=== PATIENT | male | born 1965 | race Caucasian/White ===

== ENCOUNTER 2020-05-23 06:30 | Outpatient (REF) | payer OTHER, SELFPAY ==
[2020-05-23 07:27] LABS: MANUAL DIFF FLAG NO
[2020-05-23 07:34] LABS: Basophils Absolute Auto 0.1 X10*3/uL (0.0-0.2); Basophils Percent Auto 1.2 % (0-2); Eosinophils Absolute Auto 0.4 X10*3/uL (0.0-0.4); Eosinophils Percent Auto 5.9 % (0-4); Hematocrit 48.5 % (42-52); Hemoglobin 16.7 g/dl (14.0-18.0); Imm Gran Abs Auto 0.07 X10*3/uL (0.00-0.03); Imm Gran Pct Auto 1.1 % (0.0-0.4); Lymphocytes Absolute Auto 1.7 X10*3/uL (1.2-4.9); Lymphocytes Percent Auto 26.2 % (20-40); Mean Corpuscular HGB Conc 34.4 g/dl (31.0-36.0); Mean Corpuscular Hemoglobin 31.2 pg (27.0-33.0); Mean Corpuscular Volume 90.7 fL (80-98); Mean Platelet Volume 10.1 fL (9.4-12.4); Monocytes Absolute Auto 0.5 X10*3/uL (0.1-1.2); Monocytes Percent Auto 7.2 % (2-11); Neutrophils Absolute Auto 3.9 X10*3/uL (2.0-8.3); Neutrophils Percent Auto 58.4 % (45-73); Platelet Count 304 X10*3/uL (160-400); Red Blood Count 5.35 X10*6/uL (4.60-5.80); Red Cell Distribution Width 11.8 % (11.0-16.0); White Blood Count 6.7 X10*3/uL (4.8-10.8)
[2020-05-23 07:48] LABS: Alanine Aminotransferase 39 U/L (0-40); Albumin Level 4.6 g/dL (3.5-5.0); Alkaline Phosphatase 64 U/L (39-117); Anion Gap 15 (12-20); Aspartate Amino Transferase 24 U/L (5-37); Bilirubin Total 0.6 mg/dL (0.0-1.0); Blood Urea Nitrogen 15 mg/dL (9-16); Carbon Dioxide 23 mmol/L (22-29); Chloride 107 mmol/L (96-108); Cholesterol 259 mg/dL; Estimated Glomerular Filt Rate > 60; Glucose Fasting 108 mg/dL (60-99); HDL Cholesterol 50 mg/dL; LDL Cholesterol Calculated 173 mg/dl; Potassium 4.2 mmol/L (3.3-5.1); Sodium 141 mmol/L (135-145); Total Protein 7.1 g/dL (6.5-8.0); Triglycerides 184 mg/dL
[2020-05-23 07:56] LABS: Glucose Urine UA NEG (NEG); Leukocyte Esterase Urine NEG (NEG); Nitrite Urine NEG (NEG); PH 5.5 (5.0-8.0); Specific Gravity - Urine 1.025 (1.005-1.025); Urine Blood NEG (NEG); Urine Ketones NEG (NEG); Urine Protein NEG (NEG-TRACE)
[2020-05-23 08:00] LABS: Appearance Urine CLEAR; Color Urine YELLOW
[2020-05-23 08:08] LABS: Prostate Specific Antigen Scr 0.47 ng/mL (<0.05-4.0)
== END 2020-05-23 06:31 | disposition home or self-care (01) ==
LOC: HO.LAB 06:30
PROVIDERS: PCP Internal Medicine; Visit Provider Internal Medicine
DX: Z00.00 Encounter for general adult medical examination without abnormal findings (principal); R73.03 Prediabetes; E78.00 Pure hypercholesterolemia, unspecified; Z12.5 Encounter for screening for malignant neoplasm of prostate
CPT/HCPCS: 36415; 80053; 80061; 81003; 84153; 85025

== ENCOUNTER 2021-06-01 10:39 | Outpatient (REF) | payer OTHER, SELFPAY ==
[2021-06-01 10:44] LABS: MANUAL DIFF FLAG NO
[2021-06-01 11:17] LABS: Basophils Absolute Auto 0.1 X10*3/uL (0.0-0.2); Basophils Percent Auto 0.9 % (0-2); Eosinophils Absolute Auto 0.3 X10*3/uL (0.0-0.4); Eosinophils Percent Auto 4.9 % (0-4); Hematocrit 46.9 % (42.0-52.0); Hemoglobin 15.8 g/dl (14.0-18.0); Imm Gran Abs Auto 0.05 X10*3/uL (0.00-0.03); Imm Gran Pct Auto 0.7 % (0.0-0.4); Lymphocytes Percent Auto 30.3 % (20-40); Mean Corpuscular HGB Conc 33.7 g/dl (31.0-36.0); Mean Corpuscular Hemoglobin 31.3 pg (27.0-33.0); Mean Corpuscular Volume 92.9 fL (80.0-98.0); Mean Platelet Volume 10.2 fL (9.4-12.4); Monocytes Absolute Auto 0.6 X10*3/uL (0.1-1.2); Monocytes Percent Auto 8.5 % (2-11); Neutrophils Absolute Auto 3.7 x10*3/uL (2.0-8.3); Neutrophils Percent Auto 54.7 % (45-73); Platelet Count 301 X10*3/uL (160-400); Red Blood Count 5.05 X10*6/uL (4.60-5.80); Red Cell Distribution Width 11.7 % (11.0-16.0); White Blood Count 6.7 X10*3/uL (4.8-10.8)
[2021-06-01 11:20] LABS: Appearance Urine CLEAR; Color Urine YELLOW; Glucose Urine UA NEG (NEG); Leukocyte Esterase Urine NEG (NEG); Nitrite Urine NEG (NEG); PH 5.5 (5.0-8.0); Specific Gravity - Urine 1.025 (1.005-1.025); Urine Blood NEG (NEG); Urine Ketones NEG (NEG); Urine Protein NEG (NEG-TRACE)
[2021-06-01 11:32] LABS: Creatinine Urine 188.19 mg/dL; Microalbum/Creatinine Ratio Ur 8.5 ug/mg cr
[2021-06-01 11:36] LABS: Alanine Aminotransferase 31 U/L (0-40); Albumin Level 4.3 g/dL (3.5-5.0); Alkaline Phosphatase 53 U/L (39-117); Anion Gap 12 (12-20); Aspartate Amino Transferase 19 U/L (5-37); Bilirubin Total 0.4 mg/dL (0.0-1.0); Blood Urea Nitrogen 18 mg/dL (9-16); Calcium 9.4 mg/dL (8.4-10.2); Carbon Dioxide 26 mmol/L (22-29); Chloride 107 mmol/L (96-108); Cholesterol 238 mg/dL; Estimated Glomerular Filt Rate > 60; Glucose Fasting 105 mg/dL (60-99); HDL Cholesterol 55 mg/dL; LDL Cholesterol Calculated 163 mg/dl; Potassium 4.5 mmol/L (3.3-5.1); Sodium 140 mmol/L (135-145); Total Protein 6.7 g/dL (6.5-8.0); Triglycerides 100 mg/dL
[2021-06-01 11:38] LABS: Estimated Average Glucose 108 mg/dL; Hemoglobin A1c % 5.4 %
[2021-06-01 12:48] LABS: PSA,Total (Free>4and<10) 0.44 ng/mL (0.00-4.00)
== END 2021-06-01 10:40 | disposition home or self-care (01) ==
LOC: HO.LNP 10:39
PROVIDERS: Visit Provider Internal Medicine
DX: Z00.00 Encounter for general adult medical examination without abnormal findings (principal); R73.03 Prediabetes; E78.00 Pure hypercholesterolemia, unspecified
CPT/HCPCS: 80053; 80061; 81003; 82043; 83036; 84153; 85025

== ENCOUNTER 2022-01-24 15:14 | Outpatient (REF) | payer OTHER, SELFPAY | END 2022-01-24 15:15 | disposition home or self-care (01) | LOC: HO.LNP 15:14 | PROVIDERS: PCP Internal Medicine; Visit Provider Surgery | DX: L72.0 Epidermal cyst (principal) | CPT/HCPCS: 11422; 88304 ==

== ENCOUNTER 2022-06-06 11:11 | Outpatient (REF) | payer OTHER, SELFPAY ==
[2022-06-06 11:15] LABS: MANUAL DIFF FLAG NO
[2022-06-06 11:38] LABS: Basophils Absolute Auto 0.1 X10*3/uL (0.0-0.2); Basophils Percent Auto 1.2 % (0-2); Eosinophils Absolute Auto 0.4 X10*3/uL (0.0-0.4); Eosinophils Percent Auto 6.2 % (0-4); Hematocrit 47.9 % (42.0-52.0); Hemoglobin 16.3 g/dl (14.0-18.0); Imm Gran Abs Auto 0.06 X10*3/uL (0.00-0.03); Imm Gran Pct Auto 0.9 % (0.0-0.4); Lymphocytes Absolute Auto 2.2 X10*3/uL (1.2-4.9); Lymphocytes Percent Auto 32.3 % (20-40); Mean Corpuscular Hemoglobin 31.5 pg (27.0-33.0); Mean Corpuscular Volume 92.6 fL (80.0-98.0); Mean Platelet Volume 10.2 fL (9.4-12.4); Monocytes Absolute Auto 0.5 X10*3/uL (0.1-1.2); Monocytes Percent Auto 7.5 % (2-11); Neutrophils Absolute Auto 3.5 x10*3/uL (2.0-8.3); Neutrophils Percent Auto 51.9 % (45-73); Platelet Count 322 X10*3/uL (160-400); Red Blood Count 5.17 X10*6/uL (4.60-5.80); Red Cell Distribution Width 11.8 % (11.0-16.0); White Blood Count 6.8 X10*3/uL (4.8-10.8)
[2022-06-06 11:44] LABS: Estimated Average Glucose 105 mg/dL; Hemoglobin A1c % 5.3 %
[2022-06-06 11:50] LABS: Appearance Urine Clear; Color Urine Yellow; Glucose Urine UA Negative (Negative); Leukocyte Esterase Urine Negative (Negative); Nitrite Urine Negative (Negative); PH 5.5 (5.0-9.0); Urine Blood Negative (Negative); Urine Ketones Negative (Negative); Urine Protein Negative (Neg-Trace)
[2022-06-06 12:17] LABS: Alanine Aminotransferase 28 U/L (0-40); Albumin Level 4.3 g/dL (3.5-5.0); Alkaline Phosphatase 56 U/L (39-117); Anion Gap 15 (12-20); Aspartate Amino Transferase 18 U/L (5-37); Bilirubin Total 0.8 mg/dL (0.0-1.0); Blood Urea Nitrogen 13 mg/dL (9-16); Calcium 9.4 mg/dL (8.4-10.2); Carbon Dioxide 23 mmol/L (22-29); Chloride 108 mmol/L (96-108); Cholesterol 246 mg/dL; Estimated Glomerular Filt Rate > 60; Glucose Fasting 95 mg/dL (60-99); HDL Cholesterol 61 mg/dL; LDL Cholesterol Calculated 165 mg/dl; PSA,Total (Free>4and<10) 0.51 ng/mL (0.00-4.00); Potassium 4.7 mmol/L (3.3-5.1); Sodium 141 mmol/L (135-145); Total Protein 6.8 g/dL (6.5-8.0); Triglycerides 104 mg/dL
[2022-06-06 12:42] LABS: Creatinine Urine 181.66 mg/dL; Microalbum/Creatinine Ratio Ur 7.1 ug/mg cr
== END 2022-06-06 11:12 | disposition home or self-care (01) ==
LOC: HO.LNP 11:11
PROVIDERS: Visit Provider Internal Medicine
DX: Z00.00 Encounter for general adult medical examination without abnormal findings (principal); Z12.5 Encounter for screening for malignant neoplasm of prostate; R73.03 Prediabetes; E78.00 Pure hypercholesterolemia, unspecified
CPT/HCPCS: 80053; 80061; 81003; 82043; 83036; 84153; 85025

== ENCOUNTER 2023-07-14 10:53 | Outpatient (REF) | payer OTHER, SELFPAY ==
[2023-07-14 10:57] LABS: MANUAL DIFF FLAG NO
[2023-07-14 11:33] LABS: Basophils Absolute Auto 0.1 X10*3/uL (0.0-0.2); Basophils Percent Auto 0.9 % (0-2); Eosinophils Absolute Auto 0.3 X10*3/uL (0.0-0.4); Eosinophils Percent Auto 3.8 % (0-4); Hematocrit 46.4 % (42.0-52.0); Hemoglobin 15.7 g/dl (14.0-18.0); Imm Gran Abs Auto 0.07 X10*3/uL (0.00-0.03); Lymphocytes Absolute Auto 2.1 X10*3/uL (1.2-4.9); Lymphocytes Percent Auto 30.2 % (20-40); Mean Corpuscular HGB Conc 33.8 g/dl (31.0-36.0); Mean Corpuscular Hemoglobin 31.4 pg (27.0-33.0); Mean Corpuscular Volume 92.8 fL (80.0-98.0); Mean Platelet Volume 10.4 fL (9.4-12.4); Monocytes Absolute Auto 0.5 X10*3/uL (0.1-1.2); Monocytes Percent Auto 7.7 % (2-11); Neutrophils Absolute Auto 3.9 x10*3/uL (2.0-8.3); Neutrophils Percent Auto 56.4 % (45-73); Platelet Count 300 X10*3/uL (160-400); Red Cell Distribution Width 12.1 % (11.0-16.0); White Blood Count 6.9 X10*3/uL (4.8-10.8)
[2023-07-14 11:37] LABS: Estimated Average Glucose 103 mg/dL; Hemoglobin A1c % 5.2 % (<6.0)
[2023-07-14 12:29] LABS: Appearance Urine Clear; Color Urine Yellow; Glucose Urine UA Negative (Negative); Leukocyte Esterase Urine Negative (Negative); Nitrite Urine Negative (Negative); Urine Blood Negative (Negative); Urine Ketones Negative (Negative); Urine Protein Negative (Neg-Trace)
[2023-07-14 12:36] LABS: Bacteria Urine None Seen (None Seen); Hyaline Casts Urine 0-2 /LPF (0-2); RBC Urine 0-2 /HPF (0-2); Squamous Epithelial Cell Urine 0-2 /HPF (0-2); WBC Urine 0-5 /HPF (0-5)
[2023-07-14 13:15] LABS: PSA,Total (Free>4and<10) 0.53 ng/mL (0.00-4.00)
[2023-07-14 13:33] LABS: Creatinine Urine 108.35 mg/dL; Microalbum/Creatinine Ratio Ur 6.4 ug/mg cr (<30)
[2023-07-14 13:37] LABS: Alanine Aminotransferase 31 U/L (0-40); Albumin Level 4.2 g/dL (3.5-5.0); Alkaline Phosphatase 55 U/L (39-117); Anion Gap 11 (12-20); Aspartate Amino Transferase 20 U/L (5-37); Bilirubin Total 0.4 mg/dL (0.0-1.0); Blood Urea Nitrogen 19 mg/dL (9-16); Calcium 9.2 mg/dL (8.4-10.2); Carbon Dioxide 24 mmol/L (22-29); Chloride 109 mmol/L (96-108); Cholesterol 207 mg/dL (<200); Estimated Glomerular Filt Rate > 60; Glucose Fasting 97 mg/dL (60-99); HDL Cholesterol 61 mg/dL (>40); LDL Cholesterol Calculated 130 mg/dL (<100); Potassium 4.3 mmol/L (3.3-5.1); Sodium 140 mmol/L (135-145); Total Protein 6.7 g/dL (6.5-8.0); Triglycerides 82 mg/dL (<150)
== END 2023-07-14 10:54 | disposition home or self-care (01) ==
LOC: HO.LNP 10:53
PROVIDERS: Visit Provider Internal Medicine
DX: Z00.00 Encounter for general adult medical examination without abnormal findings (principal); Z12.5 Encounter for screening for malignant neoplasm of prostate; R73.03 Prediabetes; E78.00 Pure hypercholesterolemia, unspecified
CPT/HCPCS: 80053; 80061; 81001; 82043; 82570; 83036; 84153; 85025

== ENCOUNTER 2024-07-19 11:59 | Outpatient (REF) | payer BC, SELFPAY ==
[2024-07-19 12:04] LABS: MANUAL DIFF FLAG NO
[2024-07-19 12:13] LABS: Appearance Urine Hazy; Color Urine Yellow; Glucose Urine UA Negative (Negative); Leukocyte Esterase Urine Negative (Negative); Nitrite Urine Negative (Negative); Specific Gravity - Urine 1.025 (1.005-1.025); Urine Blood Negative (Negative); Urine Ketones Negative (Negative); Urine Protein Negative (Neg-Trace)
[2024-07-19 12:18] LABS: Bacteria Urine None Seen (None Seen); RBC Urine 0-2 /HPF (0-2); Squamous Epithelial Cell Urine 0-2 /HPF (0-2); WBC Urine 0-5 /HPF (0-5)
[2024-07-19 12:28] LABS: Basophils Absolute Auto 0.1 X10*3/uL (0.0-0.2); Eosinophils Absolute Auto 0.3 X10*3/uL (0.0-0.4); Eosinophils Percent Auto 4.2 % (0-4); Hematocrit 48.6 % (42.0-52.0); Hemoglobin 16.5 g/dl (14.0-18.0); Imm Gran Abs Auto 0.05 X10*3/uL (0.00-0.03); Imm Gran Pct Auto 0.7 % (0.0-0.4); Lymphocytes Absolute Auto 1.9 X10*3/uL (1.2-4.9); Lymphocytes Percent Auto 27.3 % (20-40); Mean Corpuscular Hemoglobin 31.2 pg (27.0-33.0); Mean Corpuscular Volume 91.9 fL (80.0-98.0); Mean Platelet Volume 10.1 fL (9.4-12.4); Monocytes Absolute Auto 0.7 X10*3/uL (0.1-1.2); Monocytes Percent Auto 10.3 % (2-11); Neutrophils Percent Auto 56.5 % (45-73); Platelet Count 305 X10*3/uL (160-400); Red Blood Count 5.29 X10*6/uL (4.60-5.80); Red Cell Distribution Width 12.3 % (11.0-16.0); White Blood Count 7.1 X10*3/uL (4.8-10.8)
[2024-07-19 12:38] LABS: Creatinine Urine 232.22 mg/dL; Microalbum/Creatinine Ratio Ur 8.1 ug/mg cr (<30)
[2024-07-19 12:55] LABS: Estimated Average Glucose 108 mg/dL; Hemoglobin A1C 152.1052 umol/L; Hemoglobin A1c % 5.4 % (<6.0)
[2024-07-19 13:05] LABS: Alanine Aminotransferase 39 U/L (0-40); Albumin Level 4.4 g/dL (3.5-5.0); Alkaline Phosphatase 67 U/L (39-117); Anion Gap 11 (12-20); Aspartate Amino Transferase 26 U/L (5-37); Bilirubin Total 0.7 mg/dL (0.0-1.0); Blood Urea Nitrogen 13 mg/dL (9-16); Calcium 9.2 mg/dL (8.4-10.2); Carbon Dioxide 25 mmol/L (22-29); Chloride 108 mmol/L (96-108); Cholesterol 224 mg/dL (<200); Estimated Glomerular Filt Rate > 60; Glucose Fasting 118 mg/dL (60-99); HDL Cholesterol 53 mg/dL (>40); LDL Cholesterol Calculated 150 mg/dL (<100); Potassium 4.1 mmol/L (3.3-5.1); Sodium 140 mmol/L (135-145); Triglycerides 109 mg/dL (<150)
[2024-07-19 13:14] LABS: PSA,Total (Free>4and<10) 1.87 ng/mL (0.00-4.00)
--- OUTSIDE RECORDS SUMMARY | 2024-07-19 13:44 | XMS_ITS ---
Author Organization Phil Neff MD Address [address] [place] [id number] Care Team Providers Care Supervisor Name Role Phone Phil Neff Primary Care Provider [phone] Allergies No Known Allergies Results Component Value Reference Range Notes Occult Blood, Stool, Guaiac Reviewed date:07/21/2023 03:56:19 PM Interpretation:Negative Performing Lab: Notes/Report: Negative Occult Blood, Stool, Guaiac Neg REASON FOR VISIT ANNUAL EXAM, No Covid symptoms Social History Tobacco Use: Social History Observation Description Date Details (start date - stop date) Never Smoker NA - NA Tobacco Use/Smoking Question Answer Notes Patient is a nonsmoker Additional Findings: Tobacco Non-User Cu rrent non-smoker, currently using no form of tobacco Alcohol Screen Question Answer Notes Did you have a drink contain ing alcohol in the past year? Yes How often did you have a dri nk containing alcohol in the past year? 2 to 4 times a month (2 points) How many drinks did you have on a typical day when you were drinking in the past year? 1 or 2 drinks (0 point) How often did you have 6 or more drinks on one occasion in the past year? Never (0 point) Points 2 Interpretation Negative Vital Signs Blood pressure systolic 112 mm Hg 07/21/19 24 Blood pressure diastolic 80 mm Hg 024 Height 69 in 07/21/2023 Weight 170 lbs 07/21/2023 BMI 25.10 kg/m2 07/21/2023 Encounters Encounter Location Date Provider Diagnosis Phil Neff MD [address] [place] [address] [place] [id number] 07/21/2023 Phil Neff Prediabetes R73.03 ; Annual physical exam Z00.00 ; Hypercholesterolemia E78.00 ; Common wart B07.8 ; Colon cancer screening Z12.11 and Depression screening Z13.31 Assessments Encounter Date Diagnosis (ICD Code) Assessment Notes Treatment Notes Treatment Clinical Notes Section Notes 07/21/2023 Prediabetes (ICD-10 - R73.03) good ai1c, no need for medication at ths time 07/21/2023 Annual physical exam (ICD-10 - Z00.00) labs reviewed and discussed with patient 07/21/2023 Hypercholesterolemia (ICD-10 - E78.00) doing well, no need for medication at this time, will contiue to monitor 07/21/2023 Common wart (ICD-10 - B07.8) is going to try freezing it 07/21/2023 Colon cancer screeni ng (ICD-10 - Z12.11) guaiac negatve 07/21/2023 Depression screening (ICD-10 - Z13.31) negative screen Plan Of Treatment Treatment Notes Assessment Notes Prediabetes good ai1c, no need f or medication at ths time Annual physical exam labs reviewed and d iscussed with patient Hypercholesterolemia doing well, no need for medication at this time, will contiue to monitor Common wart is going to try free zing it Colon cancer screening guaiac negatve Depression screening negative screen Next Appt Details Follow Up: 1 Year, Reason: Provider Name:Phil logan, 07/26/2024 03:30:00 PM, [address] [facility], [address], [place], [place], [phone], Progress Notes * Kelechi MICHELDOB: [birth year] (58 yo M)Acc No.[id number]:07/21/2023 Progress Notes Patient:?Kelechi Michel Provider:?Phil Neff MD :1965???Age:58 Y???Sex:Male Cisco e:07/21/2023 Address:[address] [place] [address], [id number] Subjective: * Chief Complaints: * ???ANNUAL EXAMNo Covid sympt oms * HPI: ???Depression Screening:?PHQ-9?Little interest or pleasure in doing things?Not at all,?Feeling down, depressed, or hopeless?Not at all,?Trouble falling or staying asleep, or sleeping too much?Not at all,?Feeling tired or having little energy?Not at all,?Poor appetite or overeating?Not at all,?Feeling bad about yourself or that you are a failure, or have let yourself or your family down?Not at all,?Trouble concentrating on things, such as reading the newspaper or watching television?Not at all,?Moving or speaking so slowly that other people could have noticed; or the opposite, being so fidgety or restless that you have been moving around a lot more than usual?Not at all,?Thoughts that you would be better off or of hurting yourself in some way?Not at all,?Total Score?0.?Interpretation and Intervention?Depression Screening Findings?Negative,?Follow-Up for Depression?: review of PHQ-9 found negative result, no follow-up needed.? patient is a 58 yo male here for annual visit with review of recent labs and follow up of chronic issues. ???Communication Needs:?Communication Needs?Does the patient have a hearing impairment?No,?Does the patient have a vision impairment??Yes,?If yes, what is the vision impairment??Glasses,?Does the patient have a cognition impairment??No.?SDOH Questions:?SDOH Questions?In the past year have you been worried about losing housing??No,?In the past year have you or any family members you live with been unable to get any of the following when it was really needed? Check all that apply:?None.? * ROS:?General/Constitutional:?Patient denies?fatigue , headache.?Change in appetite?denies.?Chills?denies.?Fever?denies.?Ophthalmologic:?Blurred vision?denies.?Discharge?denies.?Pain?denies.?ENT:?Patient denies?decreased sense of smell , any loss of taste , sore throat.?Decreased hearing?denies.?Sore throat?denies.?Swollen glands?denies.?Endocrine:?Cold intolerance?denies.?Excessive thirst?denies.?Heat intolerance?denies.?Weight loss?denies.?Respiratory:?Cough?denies.?Shortness of breath at rest?denies.?Shortness of breath with exertion?denies.?Wheezing?denies.?Cardiovascular:?Chest pain at rest?denies.?Chest pain with exertion?denies.?Irregular heartbeat?denies.?Shortness of breath?denies.?Gastrointestinal:?Abdominal pain?denies.?Change in bowel habits?denies.?Diarrhea?denies.?Nausea?denies.?Rectal bleeding?denies.?Vomiting?denies .?Genitourinary:?Blood in urine?denies.?Difficulty urinating?denies.?Frequent urination?denies.?Musculoskeletal:?Patient denies?muscle aches.?Painful joints?denies.?Weakness?denies.?Peripheral Vascular:?Patient denies?red and blue toes.?Skin:?Dry skin?denies.?Itching?denies.?Denies?Mole(s),? changes in moles, new moles or any lesions of concern.?Denies?Photosensitivity.?Rash?denies.?Neurologic:?Dizziness?denies.?Fainting?denies.?Headache?denies.? * Medical History:? * Surgical History:? * Hospitalization/Major Diagno stic Procedure:? * Family History:?Father: ruben e 90 yrs, diagnosed with Cancer.?Mother: alive 90 yrs, diagnosed with Cancer.?1 brother(s) , 2 sister(s) . 1 son(s) , 2 daughter(s) . .? No pertinent family medical history, Denies mental health/substance abuse family history, Denies mental health/substance abuse family history, Denies mental health/substance abuse family history, Denies mental health/substance abuse family history. * Social History:?Tobacco Use:?Tobacco Use/Smoking?Patient is a?nonsmoker,?Additional Findings: Tobacco Non-User?Current non-smoker, currently using no form of tobacco.?Drugs/Alcohol:?Alcohol Screen?Did you have a drink containing alcohol in the past year??Yes,?How often did you have a drink containing alcohol in the past year??2 to 4 times a month (2 points),?How many drinks did you have on a typical day when you were drinking in the past year??1 or 2 drinks (0 point),?How often did you have 6 or more drinks on one occasion in the past year??Never (0 point),?Points?2,?Interpretation?Negative.?Miscellaneous:?Caffeine: yes, frequency:,1-2 cups per day. Children: yes. Exercise: yes, walks everyday 45 minutes. Home smoke detector use: yes. Marital status: . 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 Pets: dog x1. no Travel outside of the [place]. * Medications:? * Allergies:?N.K.D.A.yes[Aller gies Verified] Objective: * Vitals:?Ht: 69, Wt:170, BMI: 25.10, BP:112/80. * ???Past Orders: ???Lab:Hemoglobin A1c (Order Date - 07/14/2023) (Collection Date - 07/14/2023) ? Value Reference Range ?Hemoglobin A1c % 5.2 <6. 0 - % ?Estimated Average Glucose 103 - mg/dL ???Lab:Complete Blood Count Auto Diff (Order Date - 07/14/2023) (Collection Date - 07/14/2023) ? Value Reference Range ?White Blood Count 6.9 4. 8-10.8 - X10*3/uL ?Red Blood Count 5.00 4.60 -5.80 - X10*6/uL ?Hemoglobin 15.7 14.0-18.0 - g/dl ?Hematocrit 46.4 42.0-52.0 - % ?Mean Corpuscular Volume 92.8 80.0-98.0 - fL ?Mean Corpuscular Hemoglobin 31.4 27.0-33.0 - pg ?Mean Corpuscular HGB Conc 33.8 31.0-36.0 - g/dl ?Red Cell Distribution Width 12.1 11.0-16.0 - % ?Platelet Count 300 160-4 00 - X10*3/uL ?Mean Platelet Volume 10.4 9.4-12.4 - fL ?Neutrophils Percent Auto 56.4 45-73 - % ?Imm Gran Pct Auto 1.0 H 0. 0-0.4 - % ?Lymphocytes Percent Auto 30.2 20-40 - % ?Monocytes Percent Auto 7.7 2-11 - % ?Eosinophils Percent Auto 3.8 0-4 - % ?Basophils Percent Auto 0.9 0-2 - % ?NRBC Pct Auto 0.0 0.0-0. 2 - /100WBC ?Neutrophils Absolute Auto 3.9 2.0-8.3 - x10*3/uL ?Imm Gran Abs Auto 0.07 H 0. 00-0.03 - X10*3/uL ?Lymphocytes Absolute Auto 2.1 1.2-4.9 - X10*3/uL ?Monocytes Absolute Auto 0.5 0.1-1.2 - X10*3/uL ?Eosinophils Absolute Auto 0.3 0.0-0.4 - X10*3/uL ?Basophils Absolute Auto 0.1 0.0-0.2 - X10*3/uL ?NRBC Abs Auto 0.000 0.0-0. 012 - X10*3/uL ???Lab:UA ClnCatch+Micro w/r flx Cult (Order Date - 07/14/2023) (Collection Date - 07/14/2023) ? Value Reference Range ?Color Urine Yellow - ?Appearance Urine Clear - ?PH 5.0 5.0-9.0 - ?Glucose Urine UA Negative Neg ative - mg/dL ?Urine Blood Negative Negative - ?Specific [place] - Urine 1.020 1.005-1.025 - ?Urine Protein Negative Neg-Tr rosy - mg/dL ?Urine Ketones Negative Negati ve - mg/dL ?Nitrite Urine Negative Negati ve - ?Leukocyte Esterase Urine Negative Negative - ?RBC Urine 0-2 0-2 - /HPF ?WBC Urine 0-5 0-5 - /HPF ?Squamous Epithelial Cell Urine 0-2 0-2 - /HPF ?Bacteria Urine None Seen None Seen - ?Hyaline Casts Urine 0-2 0-2 - /LPF ???Lab:Comprehensive Jenkins. P nadeem Fast (Order Date - 07/14/2023) (Collection Date - 07/14/2023) ? Value Reference Range ?Sodium 140 135-145 - mmo l/L ?Bilirubin Total 0.4 0.0- 1.0 - mg/dL ?Aspartate Amino Transferase 20 5-37 - U/L ?Alanine Aminotransferase 31 0-40 - U/L ?Total Protein 6.7 6.5-8. 0 - g/dL ?Albumin Level 4.2 3.5-5. 0 - g/dL ?Alkaline Phosphatase 55 39-117 - U/L ?Potassium 4.3 3.3-5.1 - mmol/L ?Chloride 109 H 96-108 - mm ol/L ?Carbon Dioxide 24 22-29 - mmol/L ?Anion Gap 11 L 12-20 - ?Blood Urea Nitrogen 19 H 9-16 - mg/dL ?Creatinine 0.86 0.5-1.4 - mg/dL ?Estimated Glomerular Filt Rate > 60 - ?Glucose Fasting 97 60-9 9 - mg/dL ?Calcium 9.2 8.4-10.2 - m g/dL ???Lab:Lipid Panel (Order Da te 07/14/2023) (Collection Date - 07/14/2023) ? Value Reference Range ?Triglycerides 82 <150 - mg/dL ?Cholesterol 207 H <200 - m g/dL ?LDL Cholesterol Calculated 130 H <100 - mg/dL ?HDL Cholesterol 61 >40 - mg/dL ???Lab:PSA,Total (Free>4and< 10) (Order Date - 07/14/2023) (Collection Date - 07/14/2023) ? Value Reference Range ?PSA,Total (Free>4and<10) 0.53 0.00-4.00 - ng/mL ???Lab:Microalbumin, Random (Order Date 07/14/2023) (Collection Date 07/14/2023) ? Value Reference Range ?Creatinine Urine 108.35 - m g/dL ?Microalbumin Urine 7.0 - mg/L ?Microalbum Creatinine Ratio Ur 6.4 <30 - ug/mg cr * Examination: ???General Examination: ?GENERAL APPEARANCE:?well developed, well nourished, in no acute distress.?HEAD:?normocephalic, atraumatic.?EYES:?pupils equal, round, reactive to light and accommodation, sclera non-icteric.?EARS:?normal.?ORAL CAVITY:?mucosa moist.?THROAT:?clear.?NECK/THYROID:?neck supple, full range of motion, no cervical lymphadenopathy, no bruits.?SKIN:?warm and dry, no suspicious lesions, abnormal rt ear lobe with? a wart about 3 mm.?HEART:?regular rate and rhythm, S1, S2 normal, no murmurs.?LUNGS:?clear to auscultation bilaterally.?ABDOMEN:?soft, nontender, nondistended, bowel sounds present, normal, no organomegaly , no masses palpable.?RECTAL EXAM:?normal tone, no external hemorrhoids, no masses palpable, prostate normal, stool guaiac negative.?MALE GENITOURINARY:?circumcised, no penile lesions or discharge.?EXTREMITIES:?no clubbing, cyanosis, or edema.?NEUROLOGIC:?nonfocal, motor strength normal upper and lower extremities, sensory exam intact.? Assessment: * Assessment: 1.?Annual physical exam - Z0 0.00 (Primary)?2.?Prediabetes - R73.03?3.?Hypercholesterolemia - E78.00?4.?Common wart - B07.8?5.?Colon cancer screening - Z12.11?6.?Depression screening - Z13.31? Plan: * Treatment: 2.?Prediabetes? Notes: good ai1c, no need for medication at ths time.?? 3.?Hypercholesterolemia? Notes: doing well, no need for medication at this time, will contiue to monitor.?? 4.?Common wart? Notes: is going to try freezing it.?? 5.?Colon cancer screening?LAB: Occult Blood, Stool, Guaiac?Negative ? Value Reference Range ?Occult Blood, Stool, Guaiac Neg Notes: guaiac negatve.??6.?Depression screening? Notes: negative screen.?? * Procedure Codes:?63281 TEST FOR BLOOD, FECES * Follow Up:?1 Year * * Sign off status: Completed true * Provider:?Phil Neff MD Date:?0 07/21/2023 Generated for Daniei david/Adan/eTransmitting on:?07/19/2024 01:44 PM EDT History and Physical Notes * HPI (History of Present Illness) Category Sub-Category Detail Notes Category Not es Depression Screening PHQ-9 Little inte rest or pleasure in doing things: Not at all patient is a 58 yo male here for annual visit with review of recent labs and follow up of chronic issues. Feeling down, depressed, or hopeless: No t at all Trouble falling or staying asleep, or sl eeping too much: Not at all Feeling tired or having little energy: N ot at all Poor appetite or overeating: Not at all Feeling bad about yourself o r that you are a failure, or have let yourself or your family down: Not at all Trouble concentrating on thi ngs, such as reading the newspaper or watching television: Not at all Moving or speaking so slowly that other people could have noticed; or the opposite, being so fidgety or restless that you have been moving around a lot more than usual: Not at all Thoughts that you would be b grace off or of hurting yourself in some way: Not at all Total Score: 0 Interpretation and Intervention Depression Dianna chambers Findings: Negative Follow-Up for Depression: : review of PH Q-9 found negative result, no follow-up needed SDOH Questions SDOH Questions In the past year have you been worried about losing housing?: No In the past year have you or any family members you live with been unable to get any of the following when it was really needed? Check all that apply:: None Communication Needs Communication Needs Does the patient have a hearing impairment: No Does the patient have a vision impairmen t?: Yes ?If yes, what is the vision impairment?: Glasses Does the patient have a cognition impair ment?: No Examination Category Sub-Category Detail Notes Category Not es General Examination GENERAL APPEARANCE: well dev eloped, well nourished, in no acute distress HEAD: normocephalic, atrau matic EYES: pupils equal, round, reactive to light and accommodation, sclera non- icteric EARS: normal THROAT: clear NECK/THYROID: neck supple, full ra nge of motion, no cervical lymphadenopathy, no bruits HEART: regular rate and rhy thm, S1, S2 normal, no murmurs LUNGS: clear to auscultatio n bilaterally ABDOMEN: soft, nontender, non distended, bowel sounds present, normal, no organomegaly , no masses palpable NEUROLOGIC: nonfocal, motor stre ngth normal upper and lower extremities, sensory exam intact SKIN: warm and dry, no tyrone picious lesions, abnormal rt ear lobe with a wart about 3 mm EXTREMITIES: no clubbing, cyanosi s, or edema MALE GENITOURINARY: circumcised, no peni le lesions or discharge RECTAL EXAM: normal tone, no exte rnal hemorrhoids, no masses palpable, prostate normal, stool guaiac negative ORAL CAVITY: mucosa moist
--- OUTSIDE RECORDS SUMMARY | 2024-07-19 13:44 | XMS_ITS ---
Author Organization Phil Neff MD Address [address] [place] [id number] Care Team Providers Care Stain Dipper Name Role Phone Phil Neff Primary Care Provider Allergies No Known Allergies Reason For Referral Reason CALLUS OF FOOT Diagnosis 1 Callus of foot (L84) Referral Organization Phil Neff MD Referring Provider First Name Phil Referring Provider Last Name Aishwarya Referring Provider Speciality Internal M edicine Referred Provider Karin Hoffmann Referred Provider Specialty Podiatry General Notes Asha Perry 10/02/2023 01:34:38 PM EDT > PHONE CALL TO [facility] INDICATES THEY HAVE RECD THE REFERRAL AND PATIENT CAN CALL FOR HIS APPT. I LEFT MIHIR A MESSAGE WITH THE INFO [phone], Asha Perry 01/02/2024 09:21:57 AM EDT > REQUEST FOR OFFICE NOTE SENT FOR APPT 01/01/24, Asha Perry 01/08/2024 08:15:44 AM EDT > PATIENT DID NOT KEEP APPT Referral Priority Routine Referral Appointment Date 01/01/2024 REASON FOR VISIT something in left foot very painful Vital Signs Blood pressure systolic 92 mm Hg 09/29/19 24 Blood pressure diastolic 60 mm Hg 024 Height 69 in 09/29/2023 Weight 170 lbs 09/29/2023 BMI 25.10 kg/m2 09/29/2023 Encounters Encounter Location Date Provider Diagnosis Phil Neff MD [address] [place] [address] [address] [place], [place] [phone] 09/29/2023 Phil Neff Callus of foot L84 Assessments Encounter Date Diagnosis (ICD Code) Assessment Notes Treatment Notes Treatment Clinical Notes Section Notes 09/29/2023 Callus of foot (ICD-10 - L84) referral to dr moreau/ THE REFERRAL AND OFFICE NOTE WILL BE FAXED TO DR DARIN MOREAU @[facility]. THEY WILL REACH OUT TO PATIENT , NOT CONSIDERED AN EMERGENT APPT BY EITHER PODIATRY OFFICE . [facility] FAX [phone] Plan Of Treatment Treatment Notes Assessment Notes Callus of foot referral to dr moreau / THE REFERRAL AND OFFICE NOTE WILL BE FAXED TO DR DARIN MOREAU @[facility]. THEY WILL REACH OUT TO PATIENT , NOT CONSIDERED AN EMERGENT APPT BY EITHER PODIATRY OFFICE . [facility] FAX [phone] Referrals Referral Date Details 09/29/2023 09/29/2023, CALLUS O F FOOT, Karin Hoffmann Next Appt Details Provider Name:Phil logan, 07/26/2024 03:30:00 PM, [address] [facility], [address], [place], [place], [phone], Progress Notes * Mihir MICHEL: [birth year] (58 yo M)Acc No.[id number]:09/29/2023 Progress Notes Patient:?Mihir Michel Provider:?Phil Neff MD :1965???Age:58 Y???Sex:Male Cisco e:09/29/2023 Address:[address] [place] [address] Subjective: * Chief Complaints: * ???Something in left foot ve ry painful * HPI: ???Symptom(s):? patient is a 58 yo male with pain in lateral foot on left. soaking it and somethingl seemed to come out of it when his put a needle in it. * ROS:?General/Constitutional:?Patient denies?chills , fatigue , fever , headache.?ENT:?Patient denies?decreased sense of smell , any loss of taste , sore throat.?Musculoskeletal:?Patient denies?muscle aches.?Peripheral Vascular:?Patient denies?red and blue toes.?Podiatric:?Patient complaining of?with a prominent bone on the latteral aspect of the left foot with a callous on the bottom of foot. .?Comments?having a great deal of pain in thast foot and not able to walk normally. is befginning to get some plantar fascia pain on that side from his abnormal gait..? * Medical History:? * Surgical History:? * Hospitalization/Major Diagno stic Procedure:? * Medications:? * Allergies:?N.K.D.A.yes[Aller gies Verified] Objective: * Vitals:?Ht: 69, Wt:170, BMI: 25.10, BP:92/60. * Examination: ???General Examination: ?GENERAL APPEARANCE:? alert, well hydrated, in no distress .?EXTREMITIES:? abnormal with a? prominent bone on lateral left foot with callous on the area. no drainage.? Assessment: * Assessment: 1.?Callus of foot - L84 (Ayanna nemo)? Plan: * Treatment: * Procedure Codes:? * * Sign off status: Completed true * Provider:?Phil Neff MD Date:?0 09/29/2023 Generated for Cindy hernandez/Adan/Jonathansmitting on:?07/19/2024 01:44 PM EDT History and Physical Notes * HPI (History of Present Illness) Category Sub-Category Detail Notes Category Not es Symptom(s) patient is a 58 yo male with pain in lateral foot on left. soaking it and somethingl seemed to come out of it when his put a needle in it Examination Category Sub-Category Detail Notes Category Not es General Examination GENERAL APPEARANCE: alert, w ell hydrated, in no distress EXTREMITIES: abnormal with a prom inent bone on lateral left foot with callous on the area. no drainage Consultation Request Notes Referral Date Referring Provider Referred Provider Not es 09/29/2023 Phil Neff Christoher CALLUS OF FOOT
--- OUTSIDE RECORDS SUMMARY | 2024-07-19 13:45 | XMS_ITS ---
Author Organization Phil Neff MD Address [address] [place] [phone] Care Team Providers Care Elevator Constructor Electric Name Role Phone Phil Neff Primary Care Provider [phone] Results Component Value Reference Range Notes Complete Blood Count Auto Di ff (Not yet reviewed by provider) Interpretation: Performing Lab:[facility], [address] [place] [phone] Notes/Report: White Blood Count 7.1 4.8-10.8 X10*3/uL Red Blood Count 5.29 4.60-5.80 X10*6/uL Hemoglobin 16.5 14.0-18.0 g/dl Hematocrit 48.6 42.0-52.0 % Mean Corpuscular Volume 91.9 80.0-98.0 fL Mean Corpuscular Hemoglobin 31.2 27.0-33.0 pg Mean Corpuscular HGB Conc 34.0 31.0-36.0 g/dl Red Cell Distribution Width 12.3 11.0-16.0 % Platelet Count 305 160-400 X10*3/uL Mean Platelet Volume 10.1 9.4-12.4 fL Neutrophils Percent Auto 56.5 45-73 % Imm Gran Pct Auto 0.7 0.0-0.4 % Lymphocytes Percent Auto 27.3 20-40 % Monocytes Percent Auto 10.3 2-11 % Eosinophils Percent Auto 4.2 0-4 % Basophils Percent Auto 1.0 0-2 % NRBC Pct Auto 0.0 0.0-0.2 /100WBC Neutrophils Absolute Auto 4.0 2.0-8.3 x10*3/u L Imm Gran Abs Auto 0.05 0.00-0.03 X10*3/uL Lymphocytes Absolute Auto 1.9 1.2-4.9 X10*3/u L Monocytes Absolute Auto 0.7 0.1-1.2 X10*3/uL Eosinophils Absolute Auto 0.3 0.0-0.4 X10*3/u L Basophils Absolute Auto 0.1 0.0-0.2 X10*3/uL NRBC Abs Auto 0.000 0.0-0.012 X10*3/uL Comprehensive [place]. Panel Fa st (Not yet reviewed by provider) Interpretation: Performing Lab:[facility], [address] [place] [phone] Notes/Report: Sodium 140 135-145 mmol/L Potassium 4.1 3.3-5.1 mmol/L Chloride 108 96-108 mmol/L Carbon Dioxide 25 22-29 mmol/L Anion Gap 11 12-20 Blood Urea Nitrogen 13 9-16 mg/dL Creatinine 0.92 0.5-1.4 mg/dL Estimated Glomerular Filt Rate > 60 Chronic Kidney Disease: Estimated GFR < 60 mL/min/1.73m2 Severe Kidney Disease: Estimated GFR < 15 mL/min/1.73m2 Glucose Fasting 118 60-99 mg/dL A fasting glucose from 100-125 mg/dl is considered impaired (pre-diabetes). Calcium 9.2 8.4-10.2 mg/dL Bilirubin Total 0.7 0.0-1.0 mg/dL Aspartate Amino Transferase 26 5-37 U/L Alanine Aminotransferase 39 0-40 U/L Total Protein 7.0 6.5-8.0 g/dL Albumin Level 4.4 3.5-5.0 g/dL Alkaline Phosphatase 67 39-117 U/L Lipid Panel (Not yet reviewe d by provider) Interpretation: Performing Lab:[facility], [address] [place] [phone] Notes/Report: Triglycerides 109 <150 mg/dL Desirable Triglyceride: less than 150 mg/dL Borderline High Triglyceride 150-199 mg/dL High Triglyceride: 200-499 mg/dL Very High Triglyceride: greater than or equal to 5OO mg/dL Cholesterol 224 <200 mg/dL Desirable Cholesterol: less than 200 mg/dL Borderline High Cholesterol: 200-239 mg/dL High Cholesterol: greater than 239 mg/dL LDL Cholesterol Calculated 150 <100 mg/dL Desirable LDL: less than 100 mg/dL Near Optimal/Above Optimal LDL: 110-129 mg/dL Borderline High LDL: 130-159 mg/dL High LDL: 160-189 mg/dL Very High LDL: greater than or equal to 190 mg/dL HDL Cholesterol 53 >40 mg/dL Desirable HDL: greater than 40 mg/dL Note: This HDL assay may give artificially low results in patients with liver disease. PSA,Total (Free>4and<10) (No t yet reviewed by provider) Interpretation: Performing Lab:[facility], [address] [place] [phone] Notes/Report: PSA,Total (Free>4and<10) 1.87 0.00-4.00 ng/mL A Free PSA was not performed: The percentage of Free PSA can be used to enhance the differentiation of prostate cancer from benign prostatic disease in subjects whose PSA levels are between 4.0 and 10.0 ng/mL. For subjects whose PSA levels are below 4.0 or above 10.0 ng/mL, the risk of prostate cancer is determined on the basis of the PSA alone. Therefore the % Free PSA is recommended only for those subjects whose PSA levels are between 4.0 and 10.0 ng/mL. PSA methodology: [place]s Alinity i Chemiluminescent Microparticle Immunoassay (CMIA) Microalbumin, Random (Not ye t reviewed by provider) Interpretation: Performing Lab:[address] [phone] Notes/Report: Creatinine Urine 232.22 Microalbumin Urine 19.0 Microalbum/Creatinine Ratio Ur 8.1 <30 ug/mg cr Albumin/Creatinine Ratio Reference Ranges: Normal: < 30 ug/mg creatinine Microalbuminuria: 30 - 300 ug/mg creatinine Clinical Albuminuria: > 300 ug/mg creatinine UA ClnCatch+Micro w/rflx Cul t (Not yet reviewed by provider) Interpretation: Performing Lab:[address] [phone] Notes/Report: Urine, Clean Catch Color Urine Yellow Appearance Urine Hazy PH 6.0 5.0-9.0 Glucose Urine UA Negative Negative mg/dL Urine Blood Negative Negative Specific [place] - Urine 1.025 1.005-1.025 Urine Protein Negative Neg-Trace mg/dL Urine Ketones Negative Negative mg/dL Nitrite Urine Negative Negative Leukocyte Esterase Urine Negative Negative RBC Urine 0-2 0-2 /HPF WBC Urine 0-5 0-5 /HPF Squamous Epithelial Cell Urine 0-2 0-2 /HPF Bacteria Urine None Seen None Seen Hyaline Casts Urine 3-5 0-2 /LPF Hemoglobin A1c Reviewed date:07/19/2024 01:41:18 PM Interpretation: Performing Lab:[address] [phone] Notes/Report: Hemoglobin A1c % 5.4 <6.0 % Hemoglobin A1C Reference Range Adults: 4.8 - 6.0 % Non diabetic: < 6.0 % Goal: < 7.0 % Additional Action Suggested: > 8.0 % Note: Hemoglobin A1c results are invalid for patients with abnormal amounts of HbF. Blood transfusions may impact the HbA1c concentration in the patient sample. Estimated Average Glucose 108 eAG = Estimated average glucose which is %A1C expressed as average glucose, using the formula of the R6U-Ytcirir Average Glucose study (ADAG), Diabetes Care, Vol.31,#8, Nov. 2007 REASON FOR VISIT FASTING LABS Encounters Encounter Location Date Provider Diagnosis Phil Neff MD [address] [place] [address] Drive [address] [place], [place] [phone] 07/19/2024 Phil Neff Blood tests for rout ine general physical examination Z00.00 ; Prediabetes R73.03 and Hypercholesterolemia E78.00 Assessments Encounter Date Diagnosis (ICD Code) Assessment Notes Treatment Notes Treatment Clinical Notes Section Notes 07/19/2024 Blood tests for rout ine general physical examination (ICD-10 - Z00.00) 07/19/2024 Prediabetes (ICD-10 - R73.03) 07/19/2024 Hypercholesterolemia (ICD-10 - E78.00) Plan Of Treatment Pending Test Test Name Order Date Complete Blood Count Auto Diff Comprehensive [place]. Panel Fast Lipid Panel 07/19/2024 PSA,Total (Free>4and<10) 07/19/2024 Microalbumin, Random 07/19/2024 UA ClnCatch+Micro w/rflx Cult 07/19/2024 Next Appt Details Provider Name:Phil Trejo ier, 07/26/2024 03:30:00 PM, [address], [address], [place], [place], [phone], Progress Notes * Kelechi MICHELDOB: [birth year] (59 yo M)Acc No.[id number]:07/19/2024 Progress Note Patient:?Kelechi MICHEL Provider:?Phil Neff MD :1965???Age:59 Y???Sex:Male Cisco e:07/19/2024 Address:[address] [place], [place] [phone] Subjective: * Chief Complaints: * ???1. FASTING LABS. * Medical History:? Objective: * Vitals:? Assessment: * Assessment: 1.?Blood tests for routine g eneral physical examination - Z00.00 (Primary)???2.?Prediabetes - R73.03???3.?Hypercholesterolemia - E78.00??? Plan: * Treatment: 2.?Prediabetes?LAB: Complete Blood Count Auto Diff (Collection Date & Time - 07/19/2024 07:30 AM) ?LAB: [facility] [place]. Panel Fast (Collection Date & Time - 07/19/2024 07:30 AM) ?LAB: Lipid Panel (Collection Date & Time - 07/19/2024 07:30 AM) ?LAB: PSA,Total (Free>4and<10) (Collection Date & Time - 07/19/2024 07:30 AM) ?LAB: Microalbumin, Random (Collection Date & Time - 07/19/2024 07:30 AM) ?LAB: UA ClnCatch+Micro w/rflx Cult (Collection Date & Time - 07/19/2024 07:30 AM) ?LAB: Hemoglobin A1c (Collection Date & Time - 07/19/2024 07:30 AM) 3.?Hypercholesterolemia?LAB: Complete Blood Count Auto Diff (Collection Date & Time - 07/19/2024 07:30 AM) ?LAB: [facility] [place]. Panel Fast (Collection Date & Time - 07/19/2024 07:30 AM) ?LAB: Lipid Panel (Collection Date & Time - 07/19/2024 07:30 AM) ?LAB: PSA,Total (Free>4and<10) (Collection Date & Time - 07/19/2024 07:30 AM) ?LAB: Microalbumin, Random (Collection Date & Time - 07/19/2024 07:30 AM) ?LAB: UA ClnCatch+Micro w/rflx Cult (Collection Date & Time - 07/19/2024 07:30 AM) ?LAB: Hemoglobin A1c (Collection Date & Time - 07/19/2024 07:30 AM) * Procedure Codes:?96067 VENIP UNCT, ROUTINE* * * The named appointment provid er may or may not be the originator of this progress note, and it is not deemed complete until electronically signed by the appointment provider. Sign off status: Pending * Provider:?Phil Neff MD Date:?0 07/19/2024 Generated for Cindy hernandez/Adan/eTransmitting on:?07/19/2024 01:44 PM EDT
--- OUTSIDE RECORDS SUMMARY | 2024-07-19 13:45 | XMS_ITS | Patient Health Record ---
Author Organization Phil Neff MD Address [address] [place] [phone] Care Team Providers Care Video Journalist Name Role Phone Phil Neff Primary Care Provider Allergies No Known Allergies Results Component Value Reference Range Notes Occult Blood, Stool, Guaiac Reviewed date:07/21/2023 03:56:19 PM Interpretation:Negative Performing Lab: Notes/Report: Negative Occult Blood, Stool, Guaiac Neg Complete Blood Count Auto Di ff (Not yet reviewed by provider) Interpretation: Performing Lab:[facility], [address] [place] [phone] Notes/Report: White Blood Count 7.1 4.8-10.8 X10*3/uL [...] NRBC Abs Auto 0.000 0.0-0.012 X10*3/uL Comprehensive [place]. Panel Fa st (Not yet reviewed by provider) Interpretation: Performing Lab:[facility], [address] [place] [address] Notes/Report: Sodium 140 135-145 mmol/L Potassium 4.1 [...] yet reviewe d by provider) Interpretation: Performing Lab:[address] [phone] Notes/Report: Triglycerides 109 <150 mg/dL Desirable Triglyceride: [...] t yet reviewed by provider) Interpretation: Performing Lab:[address] [phone] Notes/Report: PSA,Total (Free>4and<10) 1.87 0.00-4.00 ng/mL A [...] ye t reviewed by provider) Interpretation: Performing Lab:[address] [phone] Notes/Report: Creatinine Urine 232.22 Microalbumin Urine 19.0 Microalbum/Creatinine Ratio Ur 8.1 <30 ug/mg cr Albumin/Creatinine Ratio Reference Ranges: Normal: < 30 ug/mg creatinine Microalbuminuria: 30 - 300 ug/mg creatinine Clinical Albuminuria: > 300 ug/mg creatinine UA ClnCatch+Micro w/rflx Cul t (Not yet reviewed by provider) Interpretation: Performing Lab:[address] [phone] Notes/Report: Urine, Clean Catch Color Urine Yellow Appearance Urine Hazy PH 6.0 5.0-9.0 Glucose Urine UA Negative Negative mg/dL Urine Blood Negative Negative Specific [place] - Urine 1.025 1.005-1.025 Urine Protein Negative Neg-Trace mg/dL Urine Ketones Negative Negative mg/dL Nitrite Urine Negative Negative Leukocyte Esterase Urine Negative Negative RBC Urine 0-2 0-2 /HPF WBC Urine 0-5 0-5 /HPF Squamous Epithelial Cell Urine 0-2 0-2 /HPF Bacteria Urine None Seen None Seen Hyaline Casts Urine 3-5 0-2 /LPF Hemoglobin A1c Reviewed date:07/19/2024 01:41:18 PM Interpretation: Performing Lab:[address] [phone] Notes/Report: Hemoglobin A1c % 5.4 <6.0 % [...] average glucose, using the formula of the Q2F-Lqhrofo Average Glucose study (ADAG), Diabetes Care, Vol.31,#8, Nov. 2007 Reason For Referral Reason CALLUS OF FOOT Diagnosis 1 Callus of foot (L84) Referral Organization Phil Neff MD Referring Provider First Name Phil Referring Provider Last Name Aishwarya Ref[facility] Referred Provider Karin Hoffmann Referred Provider Specialty Podiatry General Notes NiaTilaAnDemetriaAsha A 10/02/2023 01:34:38 PM EDT > PHONE CALL TO [facility] INDICATES THEY HAVE RECD THE REFERRAL AND PATIENT CAN CALL FOR HIS APPT. I LEFT MIHIR A MESSAGE WITH THE INFO [phone], Demetria Perrymuna Moore 01/02/2024 09:21:57 AM EDT > REQUEST FOR OFFICE NOTE SENT FOR APPT 01/01/24BillyesvinAndreaAsha Moore 01/08/2024 08:15:44 AM EDT > PATIENT DID NOT KEEP APPT Referral Priority Routine Referral Appointment Date 01/01/2024 Immunizations Vaccine Route Administration Date Status Comme nts Flu Vaccine IM Intramuscular 02/28/2014 Administered zFluzone Quadrivalent IM Intramuscular 03/20/2015 Administ ered Fluarix Quadrivalent IM Intramuscular 04/16/2016 Administe red Fluarix Quadrivalent Unknown 03/11/2017 Administered HH S Fluarix Quadrivalent IM Intramuscular 05/12/2018 Administe red Fluarix Quadrivalent IM Intramuscular 05/18/2019 Administe red Fluarix Quadrivalent Unknown 01/20/2020 Administered SARS-COV-2 Moderna Unknown 07/15/2020 Administered SARS-COV-2 Moderna Unknown 08/12/2020 Administered Fluarix Quadrivalent IM Intramuscular 06/01/2021 Administe red Social History Tobacco Use: Social History Observation [...] Never (0 point) Points 2 Interpretation Negative Problems Problem Type SNOMED Code ICD Code Onset Dates Problem Status W/U Status Risk Notes Problem 16206586 Precordial pain (R07.2) Active confirm ed Problem 988871604 Right-sided thor acic back pain (M54.6) Active confirmed Problem 681648956 Prediabetes (R73.03) Active confirmed Problem 24884788 Hypercholesterol emia (E78.00) Active confirmed Vital Signs Blood pressure diastolic 60 mm Hg 09/29/2023 Height 69 in 09/29/2023 Blood pressure systolic 92 mm Hg 09/29/2023 Weight 170 lbs 09/29/2023 BMI 25.10 kg/m2 09/29/2023 Encounters Encounter Location Date Provider Diagnosis Phil Neff MD [address] [place] [address] Drive [address] [place] [phone] 07/19/2024 Phil Neff Blood tests for rout ine general physical examination Z00.00 ; Prediabetes R73.03 and Hypercholesterolemia E78.00 Phil Neff MD [address] [place] [address] Drive [address] [place] [phone] 07/21/2023 Phil Neff Prediabetes R73.03 ; Annual physical exam Z00.00 ; Hypercholesterolemia E78.00 ; Common wart B07.8 ; Colon cancer screening Z12.11 and Depression screening Z13.31 Phil Neff MD [address] [place] [address] [place] [phone] 09/29/2023 Phil Neff Callus of foot L84 Assessments Encounter Date Diagnosis (ICD Code) Assessment Notes Treatment Notes Treatment Clinical Notes Section Notes 07/19/2024 Blood tests for rout ine general physical examination (ICD-10 - Z00.00) 07/21/2023 Prediabetes (ICD-10 - R73.03) good ai1c, no need for medication at ths time 07/21/2023 Annual physical exam (ICD-10 - Z00.00) labs reviewed and discussed with patient 09/29/2023 Callus of foot (ICD- 10 - L84) referral to dr moreau/ THE REFERRAL AND OFFICE NOTE WILL BE FAXED TO DR DARIN MOREAU @[facility] IN [place]. THEY WILL REACH OUT TO PATIENT , NOT CONSIDERED AN EMERGENT APPT BY EITHER PODIATRY OFFICE . [facility] FAX [phone] 07/19/2024 Prediabetes (ICD-10 - R73.03) 07/21/2023 Hypercholesterolemia (ICD-10 - E78.00) doing well, no need for medication at this time, will contiue to monitor 07/19/2024 Hypercholesterolemia (ICD-10 - E78.00) 07/21/2023 Common wart (ICD-10 - B07.8) is going to try freezing it 07/21/2023 Colon cancer screeni ng (ICD-10 - Z12.11) guaiac negatve 07/21/2023 Depression screening (ICD-10 - Z13.31) negative screen Plan Of Treatment Pending Test Test Name Order Date Electrocardiogram (EKG) 03/27/2015 Electrocardiogram (EKG) 04/25/2016 Complete Blood Count Auto Diff 5 Comprehensive [place]. Panel Fast 5 Lipid Panel 07/19/2024 PSA,Total (Free>4and<10) 07/19/2024 Microalbumin, Random 07/19/2024 UA ClnCatch+Micro w/rflx Cult 07/19/2024 Next Appt Details Provider Name:Phil logan, 07/26/2024 03:30:00 PM, [address] [place] [address], [place] [address], [place], [place], [phone], Insurance Providers Payer Name Payer Address Payer Phone Subscriber Number Group Number Insured Name Patient Relationship to Insured Coverage Start Date Coverage End Date [employer] [address] [place], [place] [phone] [id number] Mihir Valadez Self - patient is the insured Medical (General) History Medical History History ICD Code 08/01/2016 Colonoscopy w/[facility] repeat in 10 years(2026)
== END 2024-07-19 12:00 | disposition home or self-care (01) ==
LOC: HO.LNP 11:59
PROVIDERS: Visit Provider Internal Medicine
DX: Z00.00 Encounter for general adult medical examination without abnormal findings (principal); R73.03 Prediabetes; E78.00 Pure hypercholesterolemia, unspecified; Z12.5 Encounter for screening for malignant neoplasm of prostate
CPT/HCPCS: 80053; 80061; 81001; 82043; 82570; 83036; 84153; 85025

== ENCOUNTER 2024-10-28 07:00 | Outpatient (REF) | payer BC, SELFPAY ==
--- OUTSIDE RECORDS SUMMARY | 2024-07-26 11:30 | XMS_ITS ---
Author Organization Phil Neff MD Address [address] [place] [phone] Care Team Providers Care Mh Teacher Name Role Phone Phil Neff Primary Care Provider Allergies No Known Allergies REASON FOR VISIT ANNUAL EXAM Social History Tobacco Use: Social History Observation [...] Interpretation Negative Vital Signs Blood pressure systolic 108 mm Hg 07/27/19 25 Blood pressure diastolic 60 mm Hg 025 Height 69 in 07/26/2024 Weight 172 lbs 07/26/2024 BMI 25.4 kg/m2 07/26/2024 weight is up 2 pounds since 09-29-23 Encounters Encounter Location Date Provider Diagnosis Phil Neff MD [address] [place] [address] [place] [phone] 07/26/2024 Phil Neff Annual physical exam Z00.00 ; Elevated PSA R97.20 ; Prediabetes R73.03 ; Hypercholesterolemia E78.00 ; Colon cancer screening Z12.11 and Depression screening Z13.31 Assessments Encounter Date Diagnosis (ICD Code) Assessment Notes Treatment Notes Treatment Clinical Notes Section Notes 07/26/2024 Annual physical exam (ICD-10 - Z00.00) labs reviewed and discussed with patient 07/26/2024 Elevated PSA (ICD-10 - R97.20) pending addtl lab 07/26/2024 Prediabetes (ICD-10 - R73.03) stable, will continue to monitor, no need fo medicatio 07/26/2024 Hypercholesterolemia (ICD-10 - E78.00) advised patient on diet and exercise, will continue to monitor 07/26/2024 Colon cancer screeni ng (ICD-10 - Z12.11) no stool present, sent home with óscar cards, will return to office for processing 07/26/2024 Depression screening (ICD-10 - Z13.31) negative screen Plan Of Treatment Treatment Notes Assessment Notes Annual physical exam labs reviewed and d iscussed with patient Elevated PSA pending addtl lab Prediabetes stable, will continu e to monitor, no need fo medicatio Hypercholesterolemia advised patient on diet and exercise, will continue to monitor Colon cancer screening no stool present, sent home with óscar cards, will return to office for processing Depression screening negative screen Pending Test Test Name Order Date PSA,Total (Free>4and<10) 07/26/2024 Next Appt Details Provider Name:Phil Trejo ier, 07/21/2025 07:00:00 AM, [address], [address], [place], [place], [phone], Provider Name:Phil Trejo ier, 07/28/2025 03:30:00 PM, [address], [address], [place], [place], [phone], Progress Notes * Kelechi MICHEL SonamDOB: [birth year] (59 yo M)Acc No.[id number]:07/26/2024 Progress Notes Patient: Kelechi SPIVEY Provider: Shanna Neff MD :[id number] A ge:59 Y S ex:Male Date:07/26/2024 Address:[address] [place] [address], [id number] Subjective: * Chief Complaints: * A NNUAL EXAM * HPI: D epression Screening: PHQ-9 L ittle interest or pleasure in doing things N ot at all, F eeling down, depressed, or hopeless N ot at all, T rouble falling or staying asleep, or sleeping too much N ot at all, F eeling tired or having little energy N ot at all, P oor appetite or overeating N ot at all, F eeling bad about yourself or that you are a failure, or have let yourself or your family down N ot at all, T rouble concentrating on things, such as reading the newspaper or watching television N ot at all, M oving or speaking so slowly that other people could have noticed; or the opposite, being so fidgety or restless that you have been moving around a lot more than usual N ot at all, T houghts that you would be better off or of hurting yourself in some way N ot at all, T otal Score 0 . I nterpretation and Intervention D epression Screening Findings N egative, F ollow-Up for Depression : review of PHQ-9 found negative result, no follow-up needed. C ommunication Needs: Communication Needs D oes the patient have a hearing impairment N o, D oes the patient have a vision impairment? Y es, I f yes, what is the vision impairment? G lasses, D oes the patient have a cognition impairment? N o. F all Risk: History H ave you had any falls with injury in the past year? N o, H ave you had two or more falls in the past year? N o. S AUDRA Questions: SDOH Questions I n the past year have you been worried about losing housing? N o, I n the past year have you or any family members you live with been unable to get any of the following when it was really needed? Check all that apply: N one. S ymptom(s): patient is a 59 yo male here for annual visit with review of recent labs and follow up of chronic issues. * ROS: G eneral/Constitutional: Change in appetite d enies. C hills d enies. F ever d enies. O phthalmologic: Blurred vision d enies. D ischarge d enies. P ain d enies. E NT: Decreased hearing d enies. S ore throat d enies.?Swollen glands d enies. E ndocrine: Cold intolerance d enies. E xcessive thirst d enies. H eat intolerance d enies. W eight loss d enies. R espiratory: Cough d enies. S hortness of breath at rest d enies. S hortness of breath with exertion d enies. W heezing d enies. C ardiovascular: Chest pain at rest d enies. C hest pain with exertion?denies. I rregular heartbeat d enies. S hortness of breath d enies. ? G astrointestinal: Abdominal pain d enies. C hange in bowel habits d enies. D iarrhea d enies. N ausea d enies. R ectal bleeding d enies. V omiting d enies . G enitourinary: Blood in urine d enies. D ifficulty urinating d enies. F requent urination d enies. M usculoskeletal: Painful joints d enies. W eakness d enies. ? S kin: Dry skin d enies. I tching d enies. D enies?Mole(s), changes in moles, new moles or any lesions of concern. D enies P hotosensitivity. R carmen d enies. N eurologic: Dizziness d enies. F ainting d enies. H eadache?denies. * Medical History: * Surgical History: * Hospitalization/Major Diagno stic Procedure: * Family History: F ather: alive 91 yrs, diagnosed with Cancer. M other: alive 91 yrs, diagnosed with Cancer. 1 brother(s) , 2 sister(s) . 1 son(s) , 2 daughter(s) . . No pertinent family medical history, Denies mental health/substance abuse family history, Denies mental health/substance abuse family history, Denies mental health/substance abuse family history, Denies mental health/substance abuse family history. * Social History: T obacco Use: T obacco Use/Smoking P atient is a n onsmoker, A dditional Findings: Tobacco Non-User C urrent non-smoker, currently using no form of tobacco. D rugs/Alcohol: A lcohol Screen D id you have a drink containing alcohol in the past year? Y es, H ow often did you have a drink containing alcohol in the past year? 2 to 4 times a month (2 points), H ow many drinks did you have on a typical day when you were drinking in the past year? 1 or 2 drinks (0 point), H ow often did you have 6 or more drinks on one occasion in the past year? N ever (0 point), P oints 2 , I nterpretation N egative. M iscellaneous: C affeine: yes, frequency:,1-2 cups per day. Children: yes. Exercise: yes, walks everyday 45 minutes. Home smoke detector use: yes. Marital status: . 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 Pets: dog x1. Travel outside of the [place]: no. * Medications: N one * Allergies: N .K.D.A.yes[Allergies Verified] Objective: * Vitals: H t: 69, Wt: 172, BMI:25.4, BP:108/60, Wt-k.02. weight is up 2 pounds since 6-10-24. * P ast Orders: L ab:PSA,Total (Free>4and<10) (Order Date - 07/19/2024) (Collection Date & Time - 07/19/2024 07:30 AM) Value Reference Range PSA,Total (Free>4and<10) 1.87 0.00-4.00 - ng/ mL L ab:Microalbumin, Random (Order Date - 07/19/2024) (Collection Date & Time - 07/19/2024 07:30 AM) Value Reference Range Creatinine Urine 232.22 - mg/dL Microalbumin Urine 19.0 - mg/L Microalbum Creatinine Ratio Ur 8.1 <30 - ug/ mg cr L ab:Hemoglobin A1c (Order Date 07/19/2024) (Collection Date & Time - 07/19/2024 07:30 AM) Value Reference Range Hemoglobin A1c % 5.4 <6.0 - % Estimated Average Glucose 108 - mg/dL L ab:Comprehensive [place]. Panel Fast (Order Date - 07/19/2024) (Collection Date & Time - 07/19/2024 07:30 AM) Value Reference Range Sodium 140 135-145 - mmol/L Bilirubin Total 0.7 0.0-1.0 - mg/dL Aspartate Amino Transferase 26 5-37 - U/L Alanine Aminotransferase 39 0-40 - U/L Total Protein 7.0 6.5-8.0 - g/dL Albumin Level 4.4 3.5-5.0 - g/dL Alkaline Phosphatase 67 39-117 - U/L Potassium 4.1 3.3-5.1 - mmol/L Chloride 108 96-108 - mmol/L Carbon Dioxide 25 22-29 - mmol/L Anion Gap 11 L 12-20 - Blood Urea Nitrogen 13 9-16 - mg/dL Creatinine 0.92 0.5-1.4 - mg/dL Estimated Glomerular Filt Rate > 60 - Glucose Fasting 118 H 60-99 - mg/dL Calcium 9.2 8.4-10.2 - mg/dL L ab:Lipid Panel (Order Date - 07/19/2024) (Collection Date & Time - 07/19/2024 07:30 AM) Value Reference Range Triglycerides 109 <150 - mg/dL Cholesterol 224 H <200 - mg/dL LDL Cholesterol Calculated 150 H <100 - mg/dL HDL Cholesterol 53 >40 - mg/dL L ab:Complete Blood Count Auto Diff (Order Date - 07/19/2024) (Collection Date & Time - 07/19/2024 07:30 AM) Value Reference Range White Blood Count 7.1 4.8-10.8 - X10*3/uL Red Blood Count 5.29 4.60-5.80 - X10*6/uL Hemoglobin 16.5 14.0-18.0 - g/dl Hematocrit 48.6 42.0-52.0 - % Mean Corpuscular Volume 91.9 80.0-98.0 - fL Mean Corpuscular Hemoglobin 31.2 27.0-33.0 - pg Mean Corpuscular HGB Conc 34.0 31.0-36.0 - g/ dl Red Cell Distribution Width 12.3 11.0-16.0 - % Platelet Count 305 160-400 - X10*3/uL Mean Platelet Volume 10.1 9.4-12.4 - fL Neutrophils Percent Auto 56.5 45-73 - % Imm Gran Pct Auto 0.7 H 0.0-0.4 - % Lymphocytes Percent Auto 27.3 20-40 - % Monocytes Percent Auto 10.3 2-11 - % Eosinophils Percent Auto 4.2 H 0-4 - % Basophils Percent Auto 1.0 0-2 - % NRBC Pct Auto 0.0 0.0-0.2 - /100WBC Neutrophils Absolute Auto 4.0 2.0-8.3 - x10* 3/uL Imm Gran Abs Auto 0.05 H 0.00-0.03 - X10*3/uL Lymphocytes Absolute Auto 1.9 1.2-4.9 - X10* 3/uL Monocytes Absolute Auto 0.7 0.1-1.2 - X10*3/ uL Eosinophils Absolute Auto 0.3 0.0-0.4 - X10* 3/uL Basophils Absolute Auto 0.1 0.0-0.2 - X10*3/ uL NRBC Abs Auto 0.000 0.0-0.012 - X10*3/uL L ab:UA ClnCatch+Micro w/rflx Cult (Order Date - 07/19/2024) (Collection Date & Time - 07/19/2024 07:30 AM) Value Reference Range Color Urine Yellow - Appearance Urine Hazy - PH 6.0 5.0-9.0 - Glucose Urine UA Negative Negative - mg/dL Urine Blood Negative Negative - Specific Mineral - Urine 1.025 1.005-1.025 - Urine Protein Negative Neg-Trace - mg/dL Urine Ketones Negative Negative - mg/dL Nitrite Urine Negative Negative - Leukocyte Esterase Urine Negative Negative - RBC Urine 0-2 0-2 - /HPF WBC Urine 0-5 0-5 - /HPF Squamous Epithelial Cell Urine 0-2 0-2 - /HP F Bacteria Urine None Seen None Seen - Hyaline Casts Urine 3-5 0-2 - /LPF * Examination: G eneral Examination: GENERAL APPEARANCE: w ell developed, well nourished, in no acute distress. HEAD: n ormocephalic, atraumatic. EYES: p upils equal, round, reactive to light and accommodation, sclera non-icteric. EARS: n ormal. ORAL CAVITY: m ucosa moist. THROAT: c lear. NECK/THYROID: n keyon supple, full range of motion, no cervical lymphadenopathy, no bruits. SKIN: w arm and dry, no suspicious lesions. HEART: r egular rate and rhythm, S1, S2 normal, no murmurs.? LUNGS: c lear to auscultation bilaterally. ABDOMEN: s oft, nontender, nondistended, bowel sounds present, normal, no organomegaly , no masses palpable. RECTAL EXAM: n ormal tone, no external hemorrhoids, no masses palpable, prostate normal, no stool sent with cards. MALE GENITOURINARY: c ircumcised, no penile lesions or discharge, testes descended bilaterally. EXTREMITIES: n o clubbing, cyanosis, or edema. NEUROLOGIC: n onfocal, motor strength normal upper and lower extremities, sensory exam intact. Assessment: * Assessment: 1. A nnual physical exam - Z00.00 (Primary) 2 . E levated PSA - R97.20 3 . P rediabetes - R73.03 4 . H ypercholesterolemia - E78.00? 5. C olon cancer screening - Z12.11 6 . D epression screening - Z13.31 Plan: * Treatment: 2. E levated PSA Notes: pending addtl lab 3. P rediabetes Notes: stable, will continue to monitor, no need fo medicatio 4. H ypercholesterolemia Notes: advised patient on diet and exercise, will continue to monitor 5. C olon cancer screening Notes: no stool present, sent home with óscar cards, will return to office for processing ? 6. D epression screening Notes: negative screen * Procedure Codes: * Preventive Medicine: Counseling: C are goal follow-up plan: C ounseling for abnormal BMI provided?Yes, A adri Normal BMI Follow-up G dawit encouragement to exercise. * * Sign off status: Completed true * Provider: Shanna Neff MD Date: 0 07/26/2024 Generated for Cindy hernandez/Adan/Christiano on: 0 10/28/2024 11:13 AM EDT History and Physical Notes * HPI (History of Present Illness) Category Sub-Category Detail Notes Category Not es Symptom(s) patient is a 59 yo male here for annual visit with review of recent labs and follow up of chronic issues. Depression Screening PHQ-9 Little inte rest or pleasure in doing things: Not at all Feeling down, depressed, or hopeless: No t [...] really needed? Check all that apply:: None Fall Risk History Have you had any falls with injury i n the past year?: No Have you had two or more falls in the year?: No Communication Needs Communication Needs Does the patient have a hearing impairment: No Does the patient have a vision impairmen t?: Yes If yes, what is the vision impairment?: Glasses Does the patient have a cognition impair ment?: No Examination Category Sub-Category Detail Notes Category Not es General Examination GENERAL APPEARANCE: well dev eloped, well nourished, in no acute distress HEAD: normocephalic, atrau matic EYES: pupils equal, round, reactive to light and accommodation, sclera non-icteric EARS: normal THROAT: clear NECK/THYROID: neck supple, [...] SKIN: warm and dry, no tyrone picious lesions EXTREMITIES: no clubbing, cyanosi s, or edema MALE GENITOURINARY: circumcised, no peni le lesions or discharge, testes descended bilaterally RECTAL EXAM: normal tone, no exte rnal hemorrhoids, no masses palpable, prostate normal, no stool sent with cards ORAL CAVITY: mucosa moist
[2024-10-28 12:09] LABS: PSA,Total (Free>4and<10) 0.56 ng/mL (0.00-4.00)
== END 2024-10-28 07:01 | disposition home or self-care (01) ==
LOC: HO.LNP 07:00
PROVIDERS: Visit Provider Internal Medicine
DX: Z00.00 Encounter for general adult medical examination without abnormal findings (principal); Z12.5 Encounter for screening for malignant neoplasm of prostate
CPT/HCPCS: 84153